=== PATIENT | male | born 1990 | race Caucasian/White ===

== ENCOUNTER 2021-06-07 19:56 | Emergency (ER) | payer OTHER ==
[~2021-06-07] VITALS: Ht 172.7 cm; Wt 72.2 kg
[2021-06-07] MEDS ORDERED: LIDOCAINE 2% Multi-Dose 20 ML VIAL. ONE (19:59)
--- NOTE | 2021-06-07 20:28 | PHYS DOC ---
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, says that his right second digit got caught in this planning device and has a laceration on his right second finger pad, complains of severe pain, bleeding was controlled, denies any numbness or weakness, says that he is able to move the digit, there was not a fall amputation, denies any other symptoms at this time Review of Systems: Review of Systems: General: no fevers , no chills, no general weakness Eyes: no blurred vision, no diplopia Skin: no rashes Neck: no swelling, no neck stiffness, no neck pain Heme: no bleeding, no lymph node enlargement Ear/Nose/Throat: No sore throat, no runny nose, no hearing loss, no difficulty swallowing Cardiovascular: no Chest pain, no palpitations Respiratory: No dyspnea, no cough, no hemoptysis Gastrointestinal: No abdominal pain, no nausea, no vomiting, no diarrhea, no blood in stool Genitourinary: no dysuria, no hematuria Musculoskeletal: no back pain, no leg pain, no arm pain, no arthralgia, positive for right second digit pain/laceration Neurologic: no headaches, no dizziness, no focal numbness/tingling, no focal weakness Psych: no depression, no anxiety, no SI/HI *All review of systems are negative other than what is noted above Heart Score: C/O Chest Pain: No Risk Factors: Risk Factors: DM, Current or recent (<one month) smoker, HTN, HLP, family history of CAD, obesity. Risk Scores: Score 0 - 3: 2.5% MACE over next 6 weeks - Discharge Home Score 4 - 6: 20.3% MACE over next 6 weeks - Admit for Clinical Observation Score 7 - 10: 72.7% MACE over next 6 weeks - Early Invasive Strategies Current Medications: Current Medications Medications (Trade) Dose Ordered Sig/Ld Start Time Stop Time Status Last Admin Dose Admin Lidocaine HCl (Lidocaine 2% 20ml Vial) 20 ml STK-MED ONCE 06/07/21 19:59 06/07/21 19:59 DC Allergies: Allergies: Allergies Coded Allergies Type Severity Reaction Last Updated Verified Penicillins Allergy Intermediate 06/07/21 Yes Physical Exam: PE: Gen-well appearing, no acute distress Head: Normocephalic/Atraumatic ENT: atraumatic, PERRLA, EOMI, oropharynx clear Neck: supple, full ROM/strength, no JVD, no nuchal rigidity Lungs: no distress, speaks in full sentences, Clear to auscultation bilaterally CV: reg rate, rhythm, no murmus/rubs/gallops, peripheral pulses equal in all extremities Abdomen: soft/nontender, no guarding/rebound tenderness, no rigidity, non dist ended, normoactive bowel sounds Musculoskeletal: On the right second finger pad there is a partial avulsion, does not involve the nailbed, has full range of motion, strength in all digits of the right upper extremity, cap refill is less than 2 seconds in all digits as well, no active bleeding Back: full range of motion/strength Skin: Laceration as documented above, otherwise skin is of normal appearance Lymph: no gross LEA Neuro: alert and oriented x 4, CN 2-12 grossly intact, Motor strength is 5/5 in all extremities, no focal sensory deficits, no focal ataxia, ambulatory with steady gait Psych: normal mood/affect EKG: EKG: [] Radiology/Procedures: Radiology/Procedures: [] Course & Med Decision Making: Course & Med Decision Making Pertinent Labs and Imaging studies reviewed. (See chart for details) [] Patient presents to the emergency department with a partial avulsion of the distal fingertip, this is not suturable given the avulsion, the nailbed is intact, he has full range of motion and strength of the digit, cap refill intact, there is some subjective loss of sensation of the avulsed part, first task was to provide pain control to give him some intramuscular fentanyl and a digital block with lidocaine without epinephrine and the wound was copiously irrigated, washed out, no foreign bodies were seen, will get an x-ray, he is up-to-date on tetanus, will start him on antibiotics but I believe that the patient can follow-up closely as an outpatient update 9pm: Feeling better, the x-ray did not show any fractures, wound was thoroughly cleansed, irrigated, no foreign bodies were seen and a dressing was placed, I believe he stable for discharge at this time for close outpatient orthopedic follow-up Mayra Disclaimer: [employer] Disclaimer: This electronic medical record was generated, in whole or in part, using a voice recognition dictation system. Patient was seen in the ED for fingertip avulsion that was copious irrigated and washed out in the emergency department, there is no apparent evidence of any emergency medical pathology at this time, patient was advised follow-up with their primary care provider /physician in the next 24-48 hours, I also advised him to follow-up with a hand surgeon, there are none available in our healthcare system but he advised him to go to either or [facility] and he said he could find one through his insurance and get follow-up within 48 hours, I did refer him to our general orthopedist, and to return to the ED before then if any new or worsening / concerning symptoms had developed. All questions and concerns were addressed at time of disposition - Procedure note: Wound care, irrigation Indication is avulsion to the volar aspect of the right second digit, wrist the benefits were explained to the patient, the wound was anesthetized with a digital block using 5 cc of plain lidocaine 1% without any epinephrine, once adequate local anesthesia was achieved it was copiously irrigated with sterile saline at high pressure, explored for any foreign bodies, none were seen, there was minimal wound debridement performed, then the wound was sterilized with an x-ray of iodine and chlorhexidine scrub, once it was sterile I placed a nonpressure dressing with a non absorbable gauze and then a Kerlix, the wound was hemostatic and he tolerated it well without any apparent complications, clear and comprehensive wound care instructions were also given to the patient Departure Departure Impression: Primary Impression: Avulsion of fingertip Qualified Codes: S61.209A - Unspecified open wound of unspecified finger without damage to nail, initial encounter Disposition: HOME / SELF CARE / HOMELESS Condition: IMPROVED Referrals: NO PCP (PCP) AMOL BLANCO DO Patient Instructions: Finger Avulsion Additional Instructions: The finger pad skin should grow back in a couple of days to weeks, keep it clean and dry, recommend keeping the dressing on for the next 24 hours, I am going to put you on antibiotics and pain medicines to be on the safe side, follow-up with orthopedics in the next 48 hours, return to the nearest emergency room before then if any new or worsening/concerning symptoms develop Scripts Tramadol Hcl (TRAMADOL HCL) 50 Mg Tablet 50 MG PO Q6HRS PRN for PAIN, #15 TAB Prov: MATT CHEN MD 06/07/21 Sulfamethoxazole/Trimethoprim (BACTRIM DS TABLET) 1 Each Tablet 1 TAB PO BID for infection, #14 TAB Prov: MATT CHEN MD 06/07/21 Naproxen Sodium (ANAPROX DS) 550 Mg Tablet 1 TAB PO PRN BID PRN for PAIN for 7 Days, #15 TAB 0 Refills Prov: MATT CHEN MD 06/07/21 MATT CHEN MD Jun 07, 2021 20:28
[2021-06-07] MEDS ORDERED: fentaNYL PF VIAL 100 MCG/2 ML VIAL IM ONE (20:30)
--- NOTE | 2021-06-07 20:37 | RAD ---
XR FINGER(S)_RIGHT 2+VIEWS History: Reason: index finger laceration / Spl. Instructions: / History: Technique: PA view the hand and 2 additional views of the second digit Comparison: None. Findings: No acute fracture. Second digit volar soft tissue avulsion to the level of the volar second distal ph alanx. No dislocation. Soft tissue gas noted along the volar aspect of the hand. No radiopaque foreig n body. Impression: 1. No acute osseous abnormality. 2. Second digit soft tissue injury with gas tracking along the volar aspect of the hand. Electronically signed by: Oskar Kaufman DO (06/07/2021 8:34 PM) [facility]
[2021-06-07] MEDS ORDERED: HYDROcodone/APAP 5/325MG 1 TAB TABLET PO ONE ×2 (20:45→23:30)
[2021-06-07] MEDS ORDERED: IBUPROFEN 400 MG TABLET. PO ONE (20:45)
[2021-06-07] MEDS ORDERED: SULF1TAB24 PO (20:56)
[2021-06-07] MEDS ORDERED: TRAM50TA PO (20:56)
[2021-06-07] MEDS ORDERED: NAPR-682 PO (20:56)
[2021-06-07 23:00] VITALS: BP 119/72
== END 2021-06-07 23:35 | disposition home or self-care (01) ==
LOC: ER 19:56
DX: S61.210A Laceration without foreign body of right index finger without damage to nail, initial encounter (principal); Z88.0 Allergy status to penicillin; W23.1XXA Caught, crushed, jammed, or pinched between stationary objects, initial encounter; Y93.89 Activity, other specified; Y92.89 Other specified places as the place of occurrence of the external cause; Y99.8 Other external cause status
CPT/HCPCS: 64450; 73140; 96372; 99285; J3010